=== PATIENT | female | born 1990 | race African-American/Black ===

== ENCOUNTER 2019-06-15 10:29 | Emergency (ER) | payer OTHER ==
[2019-06-15 10:36] VITALS: BP 95/57; PULSE 81; TEMP 97.9; BMI 28.3
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
== END 2019-06-15 12:34 | disposition home or self-care (01) ==
LOC: JERFT 10:29
DX: O99.89 Other specified diseases and conditions complicating pregnancy, childbirth and the puerperium (principal); R10.2 Pelvic and perineal pain; V47.5XXA Car driver injured in collision with fixed or stationary object in traffic accident, initial encounter; W22.11XA Striking against or struck by driver side automobile airbag, initial encounter; Y92.488 Other paved roadways as the place of occurrence of the external cause; Y93.89 Activity, other specified; Y99.8 Other external cause status; Z3A.14 14 weeks gestation of pregnancy
CPT/HCPCS: 76801-TC; 99284-25